=== PATIENT | female | born 1980 | race Two or more races ===

== ENCOUNTER 2019-02-03 23:25 | Inpatient (IN) | payer MEDICAID ==
[2019-02-04] MEDS ORDERED: OXYTOCIN 10 UNIT/ML 1 ML VIAL IM PRN (01:09)
[2019-02-04] MEDS ORDERED: TERBUTALINE 1 MG/ML VIAL SQ PRN (01:09)
[2019-02-04] MEDS ORDERED: LIDOCAINE 0.5% (PF) 5 MG/ML (50 ML SDV) SQ PRN (01:09)
[2019-02-04] MEDS ORDERED: METHYLERGONOVINE 0.2 MG/ML 1 ML AMP IM PRN (01:09)
[2019-02-04] MEDS ORDERED: CARBOPROST TROMETHAMINE 250 MCG/ML 1 ML AMP IM PRN (01:09)
[2019-02-04] MEDS ORDERED: OXYTOCIN 30 UNITS/500 ML NS 30 UNIT in SALINE 1 500ML.BAG IV SCH (01:15)
[2019-02-04] MEDS: LACTATED RINGERS 1,000 ML IV SCH ×4 (01:20→09:35)
[2019-02-04 01:24] VITALS: BMI 26.3
--- NOTE | 2019-02-04 01:34 | P.HPOB ---
History of Present Illness H&P Date: 02/04/19 Chief Complaint: Strong contractions every 3-5 minutes apart This is a 38-year-old white female 2 para 0010 EDC 01/28/2019 at 41 weeks gestation. Patient presented this morning with strong regular contractions every 3-5 minutes apart. She is scheduled for induction later today. She denies fluid leakage or vaginal bleeding. Fetus is been active throughout the . Past medical history is negative. Past surgical history is negative. Current medications vitamins daily. ALLERGIES none known. Family history noncontributory. Obstetric history significant for missed AB in 2017 not requiring D&C. Social history patient is , she has never been a smoker, she denies alcohol or drug use. Obstetric history significant for blood type B positive, rubella status immune. VDRL testing, urine culture, hepatitis B surface antigen, gonorrhea and chlamydia cultures, group B strep cultures all negative. One-hour Glucola 118. Patient has a known circumvallate placenta and has been followed with reactive NSTs weekly. Recent growth ultrasound reveals 28th percentile. On exam this is a pleasant female who is 5 foot 1 inch, 139 pounds, blood pressure 125/73, vital signs are stable. The general physical exam is within normal limits. Cervix is 4-5 cm dilated, 70% effaced, -2 station vertex presentation. Artificial amniorrhexis reveals meconium-stained fluid. heart rate is in the 140s baseline with frequent accelerations consistent with reactive NST. Impression: 41 week intrauterine , advanced maternal age, active labor. Meconium-stained fluid. Examination otherwise reassuring. Plan: Close maternal and surveillance. Patient may have analgesia, epidural or Stadol if requested. Anticipate normal spontaneous vaginal delivery. Review of Systems Constitutional: Reports as per HPI Past Medical History Past Medical History: No Reported History History of Any Multi-Drug Resistant Organisms: None Reported Past Surgical History: No Surgical Hx Reported Past Anesthesia/Blood Transfusion Reactions: No Reported Reaction Past Psychological History: No Psychological Hx Reported Smoking Status: Never smoker Past Drug Use History: None Reported - Past Family History Mother Family Medical History: No Reported History Medications and Allergies Home Medications Medication Instructions Recorded Confirmed Type Pnv No.95/Ferrous Fum/Folic AC 1 each PO DAILY 02/03/19 02/03/19 History [ Multivitamin Tablet] Allergies Allergy/AdvReac Type Severity Reaction Status Date / Time No Known Allergies Allergy Verified 02/03/19 23:46 Exam Vital Signs Temp Pulse Resp BP 02/04/19 01:08 97.5 F L 74 16 125/73 Intake and Output 02/03/19 02/03/19 02/04/19 14:59 22:59 06:59 Other: Weight 63.14 kg See dictation per HPI please Assessment and Plan Assessment: 41 week intrauterine , advanced maternal age, circumvallate placenta, meconium-stained fluid, early active labor. Plan: Continue close maternal and surveillance. Analgesic options reviewed. Anticipate normal spontaneous vaginal delivery. Time with Patient: Less than 30
[2019-02-04 01:39] LABS: Basophils % (A) 0 %; Eosinophils # (A) 0.3 k/uL (0-0.7); Eosinophils % (A) 2 %; HCT 40.1 % (34.0-46.0); HGB 13.4 gm/dL (11.4-16.0); Lymphocytes # (A) 1.5 k/uL (1.0-4.8); Lymphocytes % (A) 9 %; MCH 33.1 pg (25.0-35.0); MCHC 33.3 g/dL (31.0-37.0); MCV 99.2 fL (80.0-100.0); Mean Platelet Volume 9.8; Monocytes # (A) 0.6 k/uL (0-1.0); Monocytes % (A) 4 %; Neutrophils # (A) 13.3 k/uL (1.3-7.7); Neutrophils % (A) 84 %; Platelet Count 114 k/uL (150-450); RBC 4.04 m/uL (3.80-5.40); RDW 13.1 % (11.5-15.5); WBC 15.8 k/uL (3.8-10.6)
[2019-02-04] MEDS ORDERED: ROPIVACAINE 5MG/ML 20ML VIAL ONE (04:05)
[2019-02-04] MEDS ORDERED: SODIUM CHLORIDE 0.9% 100 ML BAG ONE (04:05)
[2019-02-04] MEDS ORDERED: fentaNYL (PF) 50 MCG/ML 5 ML AMP ONE (04:05)
[2019-02-04] MEDS ORDERED: WITCH HAZEL 1 EACH MED..PAD TOPICAL PRN (11:56)
[2019-02-04] MEDS ORDERED: LANOLIN CREAM 5 GM TUBE TOPICAL PRN (11:56)
[2019-02-04] MEDS ORDERED: HYDROCORTISONE 2.5% RECTAL CREAM 30 GM TUBE RECTAL PRN (11:56)
[2019-02-04] MEDS ORDERED: diphenhydrAMINE 25 MG CAP PO PRN (11:56)
[2019-02-04] MEDS ORDERED: ACETAMINOPHEN TAB 325 MG TAB PO PRN (11:56)
[2019-02-04] MEDS ORDERED: SIMETHICONE 80 MG CHEWABLE PO PRN (11:56)
[2019-02-04] MEDS ORDERED: ZOLPIDEM 5 MG TAB PO PRN (11:56)
[2019-02-04] MEDS ORDERED: diphenhydrAMINE ELIXIR 25 MG/10 ML CUP PO PRN (11:56)
[2019-02-04] MEDS ORDERED: diphenhydrAMINE 50 MG/ML 1 ML VIAL IVP PRN ×2 (11:56)
[2019-02-04] MEDS ORDERED: diphenhydrAMINE 50 MG CAP PO PRN (11:56)
[2019-02-04] MEDS ORDERED: BENZOCAINE/MENTHOL SPRAY 1 GM/SPRAY AEROSOL TOPICAL PRN (11:56)
--- NOTE | 2019-02-04 11:56 | P.PROBDLV ---
Vaginal Delivery Note - . Vaginal Delivery Note: This is a 38-year-old female 2 para 0010 EDC 01/28/2019 at 41 weeks gestation. Patient was initially scheduled for induction today for postdates, but presented in active spontaneous labor. Rubella status is immune, blood type B positive, group B strep cultures negative. is significant for advanced maternal age, and circumvallate placenta. Weekly nonstress tests have all been reactive. Please see dictated history and physical for details. Artificial amniorrhexis revealed meconium-stained fluid. heart tones were reassuring throughout the first and second stages of labor, with occasional variable decelerations. Epidural was placed per her request. Oxytocin augmentation was ultimately started. She progressed well through the first stage of labor was judged to be completely dilated at 1043 hrs. Patient was instructed as to proper pushing. Perineal body was prepped and draped in usual sterile fashion. With excellent maternal expulsive efforts and control, infant's head was delivered occiput anterior. She restituted accordi ngly. There was a nuchal cord 1 that was reduced on the perineal body. The right or anterior shoulder was gently delivered from underneath the pubic symphysis at which time the oropharynx, nasopharynx, and external nares were bulb suctioned on the perineal body. Patient was officially delivered of a liveborn female at 1121 hours. Umbilical cord was doubly clamped and ligated, she was handed to waiting nurses for evaluation where scores of 9 and 9 at one and 5 minutes respectively were given. Uterus is then massaged. Gentle traction on the umbilical cord resulted in a superficial separation of the cord from the bulk of the placenta. For this reason, manual removal of the placenta was performed. The placenta was inspected and noted to be intact with trivascular cord, meconium-stained, with a peripheral cord insertion consistent with circumvallate placenta. It was sent to pathology for evaluation. Uterus is then massaged. Hemostasis is excellent. Inspection of the cervix, vagina, perineum, periurethral, and perirectal areas revealed a spontaneous second-degree laceration at 6:00. This was repaired in the usual fashion using 3-0 Vicryl suture. A [id number] suture was used to reinforce the rectal sphincter muscle as it appear to be slightly attenuated. Excellent reapproximation was noted. All sponge needle and instrument counts correct at the end of the procedure. Infant weighs 3060 g or 6 lbs. 12 oz. The patient, her and her family are allowed to begin the bonding experience in the LDR. Total estimated blood loss 300 mL's.
[2019-02-04] MEDS ORDERED: OXYTOCIN 20 UNITS/1000 ML NS 1,000 ML IV SCH (12:00)
[2019-02-04 17:45] VITALS: RESP 16
[2019-02-04] MEDS: SENNOSIDES-DOCUSATE SODIUM 1 EACH TAB PO SCH (19:24)
[2019-02-05 07:37] VITALS: BP 88/56; PULSE 69; TEMP 98.1
[2019-02-05] MEDS: IBUPROFEN 600 MG TAB PO PRN ×2 (07:41→14:22)
[2019-02-05] MEDS: SENNOSIDES-DOCUSATE SODIUM 1 EACH TAB PO SCH (07:42)
--- NOTE | 2019-02-05 07:51 | P.DS ---
Providers Date of admission: 02/04/19 00:54 Expected date of discharge: 02/05/19 Attending physician: Rachel Velez Primary care physician: Stated None Hospital Course: This is a 38-year-old female 2 para 0010 EDC 01/28/2019 at 41 weeks gestation. Patient was originally scheduled for induction for postdates , but came in in active spontaneous labor. Artificial amniorrhexis revealed meconium-stained fluid. is remarkable for circumvallate placenta and advanced maternal age. Blood type B positive, rubella status immune, group B strep cultures negative. Please see my dictated history and physical for details. Patient received an epidural per her request. She went on to deliver vaginally a liveborn female with scores of 9 and 9 at one and 5 minutes respectively. There was an estimated blood loss recorded of 300 mL's. Was a nuchal cord 1 easily reduced. There was a small second-degree perineal laceration repaired in the usual fashion for good approximation. weighed 3060 g or 6 lbs. 12 oz. Please see my dictated delivery note for details. This morning the patient is doing well. She is voiding, ambulating and passing flatus without difficulty. Vital signs are stable and she is afebrile. Fundus is firm and in the midline, symmetric and 18 week size. Extremities are negative for edema. Chest is clear in all joiner. [place] infant is doing well. Breasts are not engorged. Patient is being discharged home today in very good condition. She will follow- up with me in the office in 6 weeks. I have reminded her no intercourse, tampons or douching. She will use [id number] ibuprofen products as needed for pain, 200 mg pills, 3 every 6 hours as needed. I've asked her to call with any fevers shakes or chills, foul smelling or copious lochia, with the passage of large blood clots, with any pain not alleviated by [id number] products, or indeed with any concerns. We have reviewed contraceptive options and we will discuss this further in the office. infant will follow-up with [facility] as recommended. Patient Condition at Discharge: Good Plan - Discharge Summary Discharge Rx Participant: No New Discharge Prescriptions: No Action Pnv No.95/Ferrous Fum/Folic AC [ Multivitamin Tablet] 1 each PO DAILY Discharge Medication List Pnv No.95/Ferrous Fum/Folic AC [ Multivitamin Tablet] 1 each PO DAILY 02/03/19 [History] Follow up Appointment(s)/Referral(s): Rachel Velez MD [STAFF PHYSICIAN] - 6 Weeks Discharge Disposition: HOME SELF-CARE
== END 2019-02-05 15:00 | disposition home or self-care (01) | DRG 807 ==
LOC: FBPOP 23:25 → 4FBP 02-04 00:54
PROVIDERS: ADMIT Obstetrics & Gynecology; ATTEND Obstetrics & Gynecology
PROC: 10E0XZZ Delivery of Products of Conception, External Approach (ICD-10-PCS; principal; 2019-02-04)
PROC: 10D17Z9 Manual Extraction of Products of Conception, Retained, Via Natural or Artificial Opening (ICD-10-PCS; 2019-02-04)
PROC: 0KQM0ZZ Repair Perineum Muscle, Open Approach (ICD-10-PCS; 2019-02-04)
PROC: 00HU33Z Insertion of Infusion Device into Spinal Canal, Percutaneous Approach (ICD-10-PCS; 2019-02-04)
PROC: 3E0R3BZ Introduction of Anesthetic Agent into Spinal Canal, Percutaneous Approach (ICD-10-PCS; 2019-02-04)
DX: O48.0 Post-term pregnancy (principal); Z37.0 Single live birth; O43.113 Circumvallate placenta, third trimester; O77.0 Labor and delivery complicated by meconium in amniotic fluid; O76 Abnormality in fetal heart rate and rhythm complicating labor and delivery; O69.81X0 Labor and delivery complicated by cord around neck, without compression, not applicable or unspecified; O70.1 Second degree perineal laceration during delivery; Z3A.41 41 weeks gestation of pregnancy; Z79.899 Other long term (current) drug therapy
CPT/HCPCS: 59025; 85025; 86850; 86900; 86901; 99213